=== PATIENT | female | born 1965 | race Caucasian/White ===

== ENCOUNTER 2023-05-25 11:02 | Outpatient (CLI) | payer MEDICARE, SELFPAY | END 2023-05-25 11:03 | disposition home or self-care (01) | LOC: INJ CL 11:05 | PROVIDERS: PCP Family Medicine; Visit Provider Family Medicine | DX: M54.16 Radiculopathy, lumbar region (principal); M48.062 Spinal stenosis, lumbar region with neurogenic claudication | CPT/HCPCS: 64483; J1100; Q9966 ==